=== PATIENT | female | born 1980 | race Caucasian/White ===

== ENCOUNTER 2018-12-05 08:49 | Emergency (ER) | payer OTHER ==
[~2018-12-05] VITALS: Ht 154.9 cm; Wt 62.1 kg
[2018-12-05 09:07] VITALS: BP_SYST 103
[2018-12-05] MEDS ORDERED: NACL 0.9% 1,000 ML IV ONE (09:39)
[2018-12-05] MEDS ORDERED: ONDANSETRON HCL 4 MG/2 ML VIAL IVP ONE (09:45)
[2018-12-05] MEDS ORDERED: KETOROLAC TROMETHAMINE 30 MG VIAL IVP ONE (09:45)
[2018-12-05 10:04] LABS: BASOPHILS % (AUTO) 0.5 % (0.0-2.0); EOSINOPHILS # (AUTO) 0.1 K/uL (0.0-0.4); EOSINOPHILS % (AUTO) 1.5 % (0.0-4.0); HEMATOCRIT 39.9 % (36-48); HEMOGLOBIN 13.7 g/dL (12.0-16.0); LYMPHOCYTES # (AUTO) 1.2 K/uL (1.0-5.5); LYMPHOCYTES % (AUTO) 20.9 % (20.5-51.5); MEAN CORPUSCULAR HEMOGLOBIN 31 pg (27-31); MEAN CORPUSCULAR HGB CONC 34 % (32-36); MEAN CORPUSCULAR VOLUME 92 fL (79.0-98.0); MONOCYTES # (AUTO) 0.5 K/uL (0.0-1.0); MONOCYTES % (AUTO) 8.7 % (1.7-9.3); NEUTROPHILS # (AUTO) 3.8 K/uL (1.8-7.7); NEUTROPHILS % (AUTO) 68.4 % (40.0-70.0); PLATELET COUNT (AUTO) 226 K/uL (130-430); RED BLOOD CELL COUNT(AUTO) 4.35 MIL/uL (4.2-6.2); RED CELL DISTRIBUTION WIDTH 12.9 % (9.0-15.0); WHITE BLOOD COUNT (AUTO) 5.6 K/uL (4.8-10.8)
[2018-12-05 10:09] LABS: BILIRUBIN,URINE NEGATIVE (NEGATIVE); BLOOD, URINE 3+ (NEGATIVE); CLARITY/URINE CLEAR (CLEAR); COLOR,URINE YELLOW (YELLOW); GLUCOSE,URINE NEGATIVE (NEGATIVE); KETONES,URINE NEGATIVE (NEGATIVE); LEUKOCYTE ESTERASE ,URINE TRACE (NEGATIVE); NITRITE, URINE NEGATIVE (NEGATIVE); PH,URINE 5.5 (5.0-8.0); PROTEIN URINE NEGATIVE (NEGATIVE)
[2018-12-05 10:14] LABS: CALCIUM 8.7 mg/dL (8.4-11.0); CREATININE 0.76 mg/dL (0.55-1.30); POTASSIUM 3.6 mmol/L (3.5-5.1)
[2018-12-05 10:19] LABS: ALBUMIN 3.7 g/dL (3.4-4.8); TOTAL BILIRUBIN 1.1 mg/dL (0.0-1.0)
[2018-12-05] MEDS ORDERED: MORPHINE 2 MG/ML INJ. SYRINGE IVP ONE (10:30)
[2018-12-05 10:40] LABS: BACTERIA,URINE RARE /HPF (None Seen)
[2018-12-05 11:20] VITALS: BP_SYST 114
== END 2018-12-05 11:18 | disposition home or self-care (01) ==
LOC: SED 08:49
DX: M54.9 Dorsalgia, unspecified (principal)
CPT/HCPCS: 36415; 74176; 80053; 81000; 81025; 85025; 87040; 96361; 96374; 96375; 99284; J1885; J2405; J7030; J2270

== ENCOUNTER 2022-04-15 10:42 | Emergency (ER) | payer MEDICAID, OTHER ==
[~2022-04-15] VITALS: Ht 149.9 cm; Wt 68.0 kg
[2022-04-15 10:50] VITALS: BP_SYST 117
[2022-04-15] MEDS ORDERED: ALBMDI INH (13:01)
[2022-04-15] MEDS ORDERED: PRED20TA PO (13:01)
[2022-04-15 13:12] VITALS: BP_SYST 117
== END 2022-04-15 13:13 | disposition home or self-care (01) ==
LOC: SED 10:42
DX: J98.01 Acute bronchospasm (principal); R07.9 Chest pain, unspecified; R05.9 Cough, unspecified; Z79.899 Other long term (current) drug therapy; Z20.822 Contact with and (suspected) exposure to COVID-19
CPT/HCPCS: 36415; 71045; 81025; 93005; 99285

== ENCOUNTER 2022-06-21 08:53 | Emergency (ER) | payer MEDICAID ==
[~2022-06-21] VITALS: Ht 154.9 cm; Wt 68.0 kg
[~2022-06-21 08:53] MED LIST: ALBMDI INH; PRED20TA PO
--- NOTE | 2022-06-21 09:10 | NUR ---
RECEIVED PT FROM CAROLYN STUBBS. PT BIBS FOR C/O ABDOMINAL PAIN 01/07. PT IS AAOX4. ON R/A. DENIES N/V/D/C. SKIN WARM, CDI, NO EDEMA. DISTAL PULSES NORMAL. SIDERAILS UP X2.
--- NOTE | 2022-06-21 09:12 | NUR ---
DR. MALHOTRA AT BEDSIDE TO ASSESS PT.
--- NOTE | 2022-06-21 09:17 | NUR ---
urine obtained and taken to lab.
[2022-06-21 09:25] VITALS: BP_SYST 116
[2022-06-21] MEDS ORDERED: KETOROLAC TROMETHAMINE 60 MG/2 ML VIAL IM ONE (09:30)
--- NOTE | 2022-06-21 09:31 | NUR ---
test completed, pt negative.
[2022-06-21 09:38] LABS: BILIRUBIN,URINE NEGATIVE (NEGATIVE); BLOOD, URINE 3+ (NEGATIVE); CLARITY/URINE CLOUDY (CLEAR); COLOR,URINE YELLOW (YELLOW); GLUCOSE,URINE NEGATIVE (NEGATIVE); KETONES,URINE NEGATIVE (NEGATIVE); LEUKOCYTE ESTERASE ,URINE 2+ (NEGATIVE); NITRITE, URINE POSITIVE (NEGATIVE); PH,URINE 5.5 (5.0-8.0); PROTEIN URINE 1+ (NEGATIVE); UROBILINOGEN,URINE 0.2 (0.2-1.0)
[2022-06-21 09:39] LABS: BASOPHILS # (AUTO) 0.1 K/uL (0.0-0.2); BASOPHILS % (AUTO) 0.9 % (0.0-2.0); EOSINOPHILS # (AUTO) 0.3 K/uL (0.0-0.4); EOSINOPHILS % (AUTO) 3.8 % (0.0-4.0); HEMATOCRIT 37.6 % (36-48); HEMOGLOBIN 12.7 g/dL (12.0-16.0); LYMPHOCYTES # (AUTO) 1.5 K/uL (1.0-5.5); LYMPHOCYTES % (AUTO) 18.5 % (20.5-51.5); MEAN CORPUSCULAR HEMOGLOBIN 31 pg (27-31); MEAN CORPUSCULAR HGB CONC 34 % (32-36); MEAN CORPUSCULAR VOLUME 92 fL (79.0-98.0); MONOCYTES # (AUTO) 0.6 K/uL (0.0-1.0); NEUTROPHILS # (AUTO) 5.8 K/uL (1.8-7.7); NEUTROPHILS % (AUTO) 69.8 % (40.0-70.0); PLATELET COUNT (AUTO) 283 K/uL (130-430); RED BLOOD CELL COUNT(AUTO) 4.11 MIL/uL (4.2-6.2); RED CELL DISTRIBUTION WIDTH 13.2 % (9.0-15.0); WHITE BLOOD COUNT (AUTO) 8.3 K/uL (4.8-10.8)
--- NOTE | 2022-06-21 09:43 | NUR ---
Scheduled meds given and tolerated well.
[2022-06-21 09:52] LABS: CALCIUM 8.5 mg/dL (8.4-11.0); CREATININE 0.73 mg/dL (0.55-1.30)
[2022-06-21 09:58] LABS: ALBUMIN 3.5 g/dL (3.4-4.8); C-REACTIVE PROTEIN QUANT 1.5 mg/dL (0-0.5); TOTAL BILIRUBIN 0.3 mg/dL (0.0-1.0)
[2022-06-21] MEDS ORDERED: cefTRIAXone 1 GM in LIDOCAINE 1%, 20 ML MDV 2.1 ML IM ONE (11:00)
[2022-06-21 11:12] LABS: BACTERIA,URINE FEW /HPF (None Seen); WBC,URINE 20-50 /HPF (0-3)
--- NOTE | 2022-06-21 11:19 | NUR ---
ROCEPHIN IM GIVEN TO LEFT GLUT, SITE COVERED WITH CDI BANDAID.
[2022-06-21] MEDS ORDERED: IBUP-1971 PO (11:35)
[2022-06-21] MEDS ORDERED: NITR-85 PO (11:35)
--- NOTE | 2022-06-21 11:50 | NUR ---
Patient given written and verbal discharge instructions and verbalizes understanding. ER MD discussed with patient the results and treatment provided. Patient in stable condition. ID arm band removed. Rx of MACROBID, IBUPROFEN given. Patient educated on pain management and to follow up with PMD. Pain Scale . Opportunity for questions provided and answered. Medication side effect fact sheet provided.
[2022-06-21 11:51] VITALS: BP_SYST 116
== END 2022-06-21 11:50 | disposition home or self-care (01) ==
LOC: SED 08:53
DX: N12 Tubulo-interstitial nephritis, not specified as acute or chronic (principal); R11.0 Nausea; R10.30 Lower abdominal pain, unspecified; Z79.899 Other long term (current) drug therapy
CPT/HCPCS: 99285; 74176; 80053; 81000; 82150; 84703; 83690; 85025; 86140; 36415; 76376; 81025; 96372; J0696; J1885; J2001

== ENCOUNTER 2022-09-23 17:36 | Emergency (ER) | payer MEDICAID ==
[~2022-09-23] VITALS: Ht 165.1 cm; Wt 77.1 kg
[~2022-09-23 17:36] MED LIST changes: +IBUP-1971 PO; +NITR-85 PO
[2022-09-23 17:45] VITALS: BP_SYST 118
--- NOTE | 2022-09-23 17:45 | NUR ---
PT TRIAGED. VITAL SIGNS ARE WNL BUT PT IS COUGHING. PLACED PT IN ER WAITING AREA. WILL CONTINUE TO MONITOR
--- NOTE | 2022-09-23 18:15 | NUR ---
Patient to ER bed H1 for evaluation. Side rails up.
--- NOTE | 2022-09-23 18:28 | NUR ---
RT AT THE BEDSIDE FOR BREATHING TX
[2022-09-23] MEDS ORDERED: ALBUTEROL SULFATE 0.083% 2.5 MG/3 ML VIAL.NEB INH ONE (18:30)
--- NOTE | 2022-09-23 19:15 | NUR ---
RECEIVED VERBAL REPORT FROM OUTGOING NURSE CAROLYN HALL. RECEIVED PT RESTING WITH EYES CLOSED, NO S/S OF DISCOMFORT NOTED.
[2022-09-23] MEDS ORDERED: ALBMDI INH (21:16)
[2022-09-23] MEDS ORDERED: DEXT15LI PO ×2 (21:16)
--- NOTE | 2022-09-23 21:45 | NUR ---
Patient given written and verbal discharge instructions and verbalizes understanding. ER DR LAINEZ discussed with patient the results and treatment provided. Patient in stable condition. ID arm band removed. Rx of VENTOLIN AND TUSSIN COUGH given. Patient educated on pain management and to follow up with PMD. Pain Scale 0/10. Opportunity for questions provided and answered. Medication side effect fact sheet provided.
[2022-09-23 21:46] VITALS: BP_SYST 110
[2022-09-23] MEDS ORDERED: DEXT15CA PO (21:47)
== END 2022-09-23 21:44 | disposition home or self-care (01) ==
LOC: SED 17:36
DX: J98.01 Acute bronchospasm (principal); B34.9 Viral infection, unspecified; R05.9 Cough, unspecified; J02.9 Acute pharyngitis, unspecified; R51.9 Headache, unspecified; Z79.899 Other long term (current) drug therapy; Z20.822 Contact with and (suspected) exposure to COVID-19
CPT/HCPCS: 36415; 71045; 94640; 99284; 87804 ×2; 87426; J7613